=== PATIENT | male | born 1995 | race Caucasian/White ===

== ENCOUNTER 2018-05-03 16:14 | Inpatient (IN) | payer BC ==
--- NOTE | 2018-05-03 16:22 | EDPHY ---
H & P Time Seen by Provider: 05/03/18 16:20 HPI/ROS: CHIEF COMPLAINT: Schizoaffective HISTORY OF PRESENT ILLNESS: Patient is a 22-year-old man with history of schizoaffective bipolar disorder who came from [place] 3 months ago for a inpatient psychiatric program. 10 days ago he was transition to [facility]. Today he was evaluated by the MD there and placed on a hold. Patient states he does not know why he is here. According to the M1 he has been having racing thoughts and some paranoia and is gravely disabled. No suicidal or homicidal ideation. There is some documentation about him using marijuana and alcohol also over the last couple days and refusing his medications at some points. Severity: Moderate Modifying factors: None REVIEW OF SYSTEMS: Constitutional: denies: chills, fever, recent illness, recent injury EENTM: denies: blurred vision, double vision, nose congestion Respiratory: denies: cough, shortness of breath Cardiac: denies: chest pain, irregular heart rate, lightheadedness, palpitations Gastrointestinal/Abdominal: denies: abdominal pain, diarrhea, nausea, vomiting, blood streaked stools Genitourinary: denies: dysuria, frequency, hematuria, pain Musculoskeletal: denies: joint pain, muscle pain Skin: denies: lesions, rash, jaundice, bruising Neurological: denies: headache, numbness, paresthesia, tingling, dizziness, weakness Hematologic/Lymphatic: denies: blood clots, easy bleeding, easy bruising Immunologic/allergic: denies: HIV/AIDS, transplant 10 systems reviewed and negative except as noted EXAM: GENERAL: Well-appearing, well-nourished and in no acute distress. HEAD: Atraumatic, normocephalic. EYES: Pupils equal round and reactive to light, extraocular movements intact, sclera anicteric, conjunctiva are normal. ENT: TMs normal, nares patent, oropharynx clear without exudates. Moist mucous membranes. NECK: Normal range of motion, supple without lymphadenopathy or JVD. LUNGS: Breath sounds clear to auscultation bilaterally and equal. No wheezes rales or rhonchi. HEART: Regular rate and rhythm without murmurs, rubs or gallops. ABDOMEN: Soft, nontender, normoactive bowel sounds. No guarding, no rebound. No masses appreciated. BACK: No CVA tenderness, no spinal tenderness, step-offs or deformities EXTREMITIES: Normal range of motion, no pitting or edema. No clubbing or cyanosis. NEUROLOGICAL: Cranial nerves II through XII grossly intact. Normal speech, normal gait. 5/5 strength, normal movement in all extremities, normal sensation , normal reflexes PSYCH: Answers questions appropriately, calm, speech slightly pressured SKIN: Warm, dry, normal turgor, no visible rashes or lesions. Source: Patient, EMS Exam Limitations: Clinical condition - Medical/Surgical History Hx Asthma: No Hx Chronic Respiratory Disease: No Hx Diabetes: No Hx Cardiac Disease: No Hx Renal Disease: No Hx Cirrhosis: No Hx Alcoholism: No Hx HIV/AIDS: No Other PMH: Schizoaffective, bipolar - Family History Significant Family History: No pertinent family hx - Social History Alcohol Use: Occasionally Drug Use: Marijuana Constitutional: Initial Vital Signs Temperature (C) 37.3 C 05/03/18 16:22 Heart Rate 120 H 05/03/18 16:22 Respiratory Rate 16 05/03/18 16:22 Blood Pressure 152/94 H 05/03/18 16:22 O2 Sat (%) 95 05/03/18 16:22 O2 Delivery Mode Room Air Allergies/Adverse Reactions: No Known Allergies Allergy (Unverified 05/03/18 16:20) Home Medications: Medication Instructions Recorded Divalproex ER [Depakote ER 500 MG 1,250 mg PO DAILY@07 05/03/18 (*)] LORazepam [Ativan (*)] 0.5 mg PO BID PRN 05/03/18 Paliperidone Palmitate [Invega 156 mg IM Q28D 05/03/18 Sustenna (*)] Paliperidone [Invega] 1.5 mg PO DAILY 05/03/18 Propranolol HCl [Inderal 10mg (*)] 10 mg PO BID 05/03/18 QUEtiapine FUMARATE [Seroquel 50 50 mg PO HS 05/03/18 mg (*)] diphenhydrAMINE [Benadryl 50 MG 50 mg PO QID PRN 05/03/18 (*)] lamoTRIgine [LamICTAL] 75 mg PO DAILY 05/03/18 risperiDONE [RisperDAL] 1 mg PO DAILY 05/03/18 Medical Decision Making ED Course/Re-evaluation: 6:00 p.m. the patient is medically cleared. Awaiting psychiatric evaluation. 6:30 p.m. the patient has been evaluated by Mental Health. They will begin looking for placement. Patient placed at [address] [place] [address]. Transfer paperwork completed. Differential Diagnosis: Partial list of the Differential diagnosis considered include but were not limited to; psychosis, bipolar, decompensated nazia and although unlikely based on the history and physical exam, I also considered infection, head injury , electrolyte abnormality, hormone imbalance. - Data Points Laboratory Results: Laboratory Results 05/03/18 16:45 05/03/18 16:45 05/03/18 05/03/18 05/03/18 16:45 16:45 16:45 WBC RBC Hgb Hct MCV MCH MCHC RDW Plt Count MPV Neut % (Auto) Lymph % (Auto) Rosebud % (Auto) Eos % (Auto) Baso % (Auto) Nucleat RBC Rel Count Absolute Neuts (auto) Absolute Lymphs (auto) Absolute Monos (auto) Absolute Eos (auto) Absolute Basos (auto) Absolute Nucleated RBC Immature Gran % Immature Gran # Sodium 140 mEq/L mEq/L (135-145) Potassium 4.0 mEq/L mEq/L (3.5-5.2) Chloride 106 mEq/L mEq/L (97-110) Carbon Dioxide 23 mEq/l mEq/l (22-31) Anion Gap 11 mEq/L mEq/L (6-14) BUN 15 mg/dL mg/dL (7-23) Creatinine 0.9 mg/dL mg/dL (0.7-1.3) Estimated GFR > 60 Glucose 106 mg/dL H mg/dL (70-100) Calcium 9.6 mg/dL mg/dL (8.5-10.4) Urine Opiates Screen NEGATIVE (NEGATIVE) Urine Barbiturates NEGATIVE (NEGATIVE) Valproic Acid 106.7 mcg/mL mcg/mL (50.0-150.0) Ur Phencyclidine Scrn NEGATIVE (NEGATIVE) Ur Amphetamine Screen NEGATIVE (NEGATIVE) U Benzodiazepines Scrn NON-NEGATIVE H (NEGATIVE) Urine Cocaine Screen NEGATIVE (NEGATIVE) U Marijuana (THC) Screen NEGATIVE (NEGATIVE) Ethyl Alcohol < 10 mg/dL mg/dL (0-10) 05/03/18 16:45 WBC 8.23 10^3/uL 10^3/uL (3.80-9.50) RBC 5.19 10^6/uL 10^6/uL (4.40-6.38) Hgb 16.0 g/dL g/dL (13.7-17.5) Hct 47.8 % % (40.0-51.0) MCV 92.1 fL fL (81.5-99.8) MCH 30.8 pg pg (27.9-34.1) MCHC 33.5 g/dL g/dL (32.4-36.7) RDW 11.9 % % (11.5-15.2) Plt Count 264 10^3/uL 10^3/uL (150-400) MPV 10.2 fL fL (8.7-11.7) Neut % (Auto) 59.2 % % (39.3-74.2) Lymph % (Auto) 27.2 % % (15.0-45.0) Rosebud % (Auto) 10.8 % % (4.5-13.0) Eos % (Auto) 1.7 % % (0.6-7.6) Baso % (Auto) 0.7 % % (0.3-1.7) Nucleat RBC Rel Count 0.0 % % (0.0-0.2) Absolute Neuts (auto) 4.87 10^3/uL 10^3/uL (1.70-6.50) Absolute Lymphs (auto) 2.24 10^3/uL 10^3/uL (1.00-3.00) Absolute Monos (auto) 0.89 10^3/uL H 10^3/uL (0.30-0.80) Absolute Eos (auto) 0.14 10^3/uL 10^3/uL (0.03-0.40) Absolute Basos (auto) 0.06 10^3/uL 10^3/uL (0.02-0.10) Absolute Nucleated RBC 0.00 10^3/uL 10^3/uL (0-0.01) Immature Gran % 0.4 % % (0.0-1.1) Immature Gran # 0.03 10^3/uL 10^3/uL (0.00-0.10) Sodium Potassium Chloride Carbon Dioxide Anion Gap BUN Creatinine Estimated GFR Glucose Calcium Urine Opiates Screen Urine Barbiturates Valproic Acid Ur Phencyclidine Scrn Ur Amphetamine Screen U Benzodiazepines Scrn Urine Cocaine Screen U Marijuana (THC) Screen Ethyl Alcohol Departure - Departure Disposition: [facility] IP Clinical Impression: Schizoaffective disorder, bipolar type, Polysubstance abuse Condition: Fair
[2018-05-03 17:19] LABS: PLATELET COUNT 264 10^3/uL (150-400)
--- NOTE | 2018-05-03 19:38 | ASMTTLCEVL ---
[facility] Evaluation - Basic Information Evaluation Start Date and 05/03/2018 06:00 PM Time Hospital Status Answers: M1 Hold 72-hr M1 Hold Start Date 05/03/2018 03:30 PM and Time Patient statement Notes: I dont know why I am here. I guess it is because I was provocative and impulsive. Im hesitant to tell you. Narrative Notes: Per ED report: Pt is a 22 year old single male with a hx of schizoaffective disorder/bipolar type who came from [place] 3 months ago to participate in [facility]. Ten days ago pt. transitioned to [facility]. Today pt was evaluated by the Psychiatrist and placed on a M1 hold. Pt had stated he does not understand why he was sent to the ED. According to the M1 hold he has racing thoughts and some paranoia and is determined as gravely disabled. There was no report of SI or HI. [facility] consulted with Psychiatrist, Dr. Moore pt was sent from [facility] outpt program on a M1 hold as pt was exhibiting symptoms of nazia with psychosis which has increased over the last 3 days. [facility] is unable to manage pt.s behavior in a transitional community facility. Pt had expressed to [facility] Recovery staff that he was afraid for his safety and others. 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 Pt was also expressing to treatment team delusional thoughts such as thinking he was in heaven. Per report pt recently relapsed admitting to drinking vodka earlier today and recently relapsing on marijuana. Pt has a reported hx of heavy marijuana use. Diagnosis History Notes: Pt has a hx of schizoaffective disorder/bipolar type. Per [facility] report pt has a hx of starting to see a Psychiatrist in 2014, initially diagnosed with OCD. Pt was diagnosed initially with OCD since he was spending a lot of his time in his room practicing rituals. Recent inpt. Psychiatrist wondered whether these ritual behaviors were more paranoia/psychosis. Prior suicide attempts Notes: There was no hx provided of past suicide attempts. Prior hospitalizations Notes: Most recent hospitalization at [facility] for 3 weeks. Records indicate pt has been hospitalized on 2 other occasions related to psychosis with a hx of THC use. Treatment Responses Notes: Pt experiencing increased symptoms likely due to relapse resuming marijuana use. History of violence Notes: No hx of violence per father. Does have a hx of confrontational behavior in the past during his episodes. Therapist: [facility]. Psychiatrist: Dr. Sidra Pickard Medications (name, dosage, route, freq uency) Notes: Current meds per [facility] include: Invega Sustenna 156 mg IM Q4 weeks next does 05/17/18, Depakoe ER 1250 po Q day, Lamictal 50 mg q day 04/21-04/27/17, Lamical 75 po q day 04/28-05/04/17, Lamictal 100 mg po q day 05/05-05/11/18, Propranolol 10 mg po BID, Invega 1.5 po QD, Seroquel 50 mg po QHS, Ativan 0.5 po BID PN anxiety, may have as pass med, Benadryl 50 mg po QID PRN insomnia or akathisia Allergies/Reaction Notes: Pt denied any known allergies. Sleep Notes: Pt stated last week he was hardly sleeping last week only about 2-4 hours a night. Pt stated the past few days he has been sleeping better. Appetite Notes: Pt reported no concerns about his appetite and is unaware of any weight changes. Medical/Surgical history Notes: No chronic medical issues per hx. Substance use history (frequency, intensity, his tory, duration) Notes: Pt has a hx of marijuana abuse and per [facility] pt recently relapsed. There was no report of any other substance abuse or regular use of alcohol. Family composition Notes: Pt has an older brother moving to [place], [place] and an older sister in [place]. It was reported pt has a good relationship with his siblings. In past pt has denied any hx of problematic drinking. Need for family Answers: Yes participation in patient's care Family psychiatric/substance abuse history Notes: Brother has a hx of depression, history of suicide attempt per records. Developmental history Notes: Pt was born and raised in [facility]. Records show pt.s brother had a suicide attempt when pt was a teenager, which deeply affected him and led to obsessive thoughts, anxiety, and depression. Abuse concerns Answers: None Marital status/children Notes: Pt is single with no children. Living situation Notes: Pt is currently living at transitional housing through the [facility]. Sexual history/orientation Notes: Pt is not in a relationship. Peer support/family strengths Notes: Pts peer support is through the [facility]. Education level/history Notes: Pt per hx did very well in school, was in AP classes in high school and also a track star. He was well liked and had some girlfriends in school. Work history Notes: Pt recently started working at a local [employer] as a director of social media marketing. 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 Notes: No hx Legal Notes: Pt denied any legal problems or hx of arrests. Nondenominational/Spiritual Notes: Pt stated he likes [employer]. Leisure Notes: When asked about leisure interests pt stated he just likes chatting. Collateral Notes: Collateral inform was obtained from [place] Psychiatrist, Dr. Sidra Pickard. Patient's strengths Answers: Athletic (Please select at least TWO strengths): Intelligent Supportive Family TLC Evaluation - Mental Status Exam Appearance: Answers: Inappropriate Eye Contact: Answers: Appropriate for Culture Mood: Answers: Euthymic Affect: Answers: Anxious Apathetic Apprehensive Distracted Guarded Indifferent Behavior: Answers: Cooperative Fearful Guarded Impulsive Restless Suspicious Speech: Answers: Relevant Clear Delayed Thought Process: Answers: Oriented Alert Paranoid Racing Thoughts Insight: Answers: Poor Judgement: Answers: Poor Manic Signs/Symptoms Answers: Impulsivity Mood Swings Racing Thoughts Depression Answers: Diminished Interest Signs/Symptoms: Diminished Pleasure Flat Affect Psychomotor Agitation Anxiety Signs/Symptoms Answers: Generalized Anxiety Obsessive/Compulsive Thoughts/Behavior Delusions: Answers: Grandiose Paranoid Ideation Current Stage of Change Answers: Precontemplation Pt reported to have Answers: No suicidal/self-injuring ideation/behavior? Pt reported to be making Answers: No suicidal/self-injuring threats? Pt reported to have Answers: No aggression/assault ideation/behavior? Pt reported to be making Answers: No aggression/assault threats? Pt exhibits inability to Answers: Yes care for self/grave disability? Patient has a specific Answers: No plan? History of Answers: No suicidal/self-injuring ideation, behavior, or threats? History of Answers: No aggressive/assaultive ideation, behavior, or threats? History of serious Answers: No physical harm to self/others while in treatment setting? TLC Evaluation - Suicide/Homicide Risk Suicide Risk Factors: Answers: Agitation Alcohol/Heavy Drug Use Anxiety/Panic, Severe Bipolar Disorder Global Insomnia Impulsivity Psychotic Disorder Rapid Mood Shifts None Current Suicidal Answers: No Ideation? Current Suicidal Ideation Answers: No in the Past 48 Hours? Current Suicidal Ideation Answers: No in the Past Month? Suicide Internal Answers: Other Notes: Pt denies SI Protective Factors: None Suicide External Answers: Positive Therapeutic Protective Factors: Relationships Ranking of patient's Answers: Low suicidal risk: Ranking of patient's Answers: Low homicidal risk: TLC Evaluation - Wrap-up BDI Total Score: 2 BDI Question #2 Score: 0 BDI Question #9 Score: 0 BSS Total Score: 0 AXIS I Diagnosis (include DSM-V and ICD-10 codes), must also be entered in [employer], which is the source of truth. Notes: Schizoaffective Disorder, Bipolar Type 295.70 (F25.0) Bipolar I Disorder, with Psychotic Features 296.44 (F31.2) Hx of Obsessive-Compulsive Disorder 300.3 (F42) Cannabis Use Disorder, severe 304.30 (F12.20) Evaluation End Date and 05/03/2018 07:50 PM Time (HH:MM): Date Signed: 05/03/2018 07:37 PM Electronically Signed By:Angelique Micehle
--- NOTE | 2018-05-03 19:40 | ASMTTCLDSP ---
TLC Discharge Disposition Disposition: Answers: Admit Disposition Notes: Notes: In consultation with [facility] ED physician, Florentin Harding MD and on-call psychiatrist, Todd Dill MD, both concurred that pt appears to meet 27-65 criteria requiring psychiatric hospitalization as pt appears to be at risk of harm to self/others/gravely disabled due to a mental illness condition. Pt was read the Patient Rights and Responsibilities Statement on 05/03/18 at 18:20, original placed on chart, and was given photocopy of Rights. Pt signed the Patient Rights. Pt was given the 3 prohibited belongings list while in the ED. Discharge Concerns/Recommendations: Notes: [facility] Was patient given the Answers: Yes Inpatient Behavioral Health Prohibited Belongings List while in the ED? For inpatient Todd Dill admission, the following psychiatrist agreed to accept patient for [facility] ([facility] Type of Hold: Answers: M1/72-hour Hold Hold initiated by: Answers: Psychiatrist Date Signed: 05/03/2018 07:39 PM Electronically Signed By:Angelique Michele
--- NOTE | 2018-05-03 19:41 | ASMTLCPROG ---
Notes Note: Notes: Pt was read the Patient Rights and Responsibilities Statement on 05/03/18 at 18:20, original placed on chart, and was given photocopy of Rights. Pt signed the Patient Rights. Pt was given the 3N prohibited belongings list while in the ED.Pt has been accepted on [facility]. Date Signed: 05/03/2018 07:40 PM Electronically Signed By:Angelique Michele
[2018-05-03] MEDS ORDERED: OLANZapine DISINTEGR 10 MG TAB PO PRN (22:30)
[2018-05-03] MEDS ORDERED: ACETAMINOPHEN 325 MG TAB PO PRN (22:30)
[2018-05-03] MEDS ORDERED: MAG HYDROX/AL HYDROX/SIMETH 30 ML UDCUP PO PRN (22:30)
[2018-05-03] MEDS ORDERED: MAGNESIUM HYDROXIDE 30 ML UDCUP PO PRN (22:30)
[2018-05-03] MEDS ORDERED: NICOTINE POLACRILEX 2 MG GUM B PRN (22:30)
[2018-05-03] MEDS ORDERED: QUEtiapine FUMARATE 50 MG TAB PO SCH (22:45)
[2018-05-04] MEDS: LORazepam 0.5 MG TAB PO PRN (05:24)
[2018-05-04] MEDS: DIVALPROEX ER 250 MG TAB PO SCH (07:44)
[2018-05-04] MEDS: DIVALPROEX ER 500 MG TAB PO SCH (07:44)
[2018-05-04] MEDS: PROPRANOLOL HCL 10 MG TAB PO SCH ×2 (07:46→20:15)
[2018-05-04] MEDS: lamoTRIgine 25 MG TAB PO SCH (07:46)
--- NOTE | 2018-05-04 08:17 | ASMTBHMTP ---
Master Treatment Plan Master Treatment Plan Answers: Mood Instability with for: Psychosis Date: 05/04/2018 Diagnosis on Admission: Schizoaffective Disorder, Bipolar Type 295.70 (F25.0) Expected length of stay: 5-7 Reason for admission: Notes: Per ED report: Pt is a 22 year old single male with a hx of schizoaffective disorder/bipolar type who came from [place] 3 months ago to participate in [facility]. Ten days ago pt. transitioned to [facility]. Today pt was evaluated by the Psychiatrist and placed on a M1 hold. Pt had stated he does not understand why he was sent to the ED. According to the M1 hold he has racing thoughts and some paranoia and is determined as gravely disabled. There was no report of SI or HI. TLC consulted with Psychiatrist, Dr. Moore pt was sent from [facility] outpt program on a M1 hold as pt was exhibiting symptoms of nazia with psychosis which has increased over the last 3 days. [facility] is unable to manage pt.s behavior in a transitional community facility. Pt had expressed to [facility] staff that he was afraid for his safety and others. 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 Pt was also expressing to treatment team delusional thoughts such as thinking he was in heaven. Per report pt recently relapsed admitting to drinking vodka earlier today and recently relapsing on marijuana. Pt has a reported hx of heavy marijuana use. Patient's stated presenting problems: Notes: "I don't know". Patient's goals for treatment: Notes: "I would like to improve my intelect". Patient's strengths: Notes: "Nothing". Identify supports outside of hospital: Notes: "My parents, care coordinators at [facility] and a few cts there". Discharge criteria: Notes: Ct. will demonstrate more stable mood by discharge. Initial disposition plan/considerations: Notes: Participate in unit activities. Schedule follow up appointments with [facility] when ready for discharge. Master Treatment Plan Required Signatures Psychiatrist signature: Answers: Psychiatrist: RN on-shift signature: Answers: RN: Patient signature: Answers: Patient: Date Signed: 05/04/2018 08:16 AM Electronically Signed By:Mally Lopez
--- NOTE | 2018-05-04 08:22 | ASMTCMCOM ---
CM Note CM Note Notes: CC met with ct. to develop MTP. Ct. presented as very anxious and was visibly shaking. However, he denied being anxious. He reported that he doesn't know why he was admitted. CC discussed with ct. his drinking (per TLC) report but ct. denied that this is an issue for him. He signed a [facility] for [facility]. Date Signed: 05/04/2018 08:21 AM Electronically Signed By:Mally Lopez
[2018-05-04] MEDS ORDERED: PALIPERIDONE 3 MG TAB.ER PO ONE (09:21)
--- NOTE | 2018-05-04 10:00 | BAPA ---
[f rep st] ADMISSION PSYCHIATRIC ASSESSMENT DATE OF SERVICE: 05/04/2018 CHIEF COMPLAINT: "I can't really tell you why I'm here." HISTORY OF PRESENT ILLNESS: From the ED note dated 05/03/2018 patient with a history of schizoaffective disorder, bipolar type, recently came to [place] from [place] for inpatient psychiatric program at [facility]. The patient arrived to the emergency department on an M1 hold. The patient reported he had no idea why he was at the emergency room. According to the M1, the patient had been having racing thoughts, paranoia, and was placed on an M1 for grave disability. The patient expressed no suicidal or homicidal ideation. There was some documentation reported that patient had recently used marijuana and alcohol over the last few days prior to his presenting to the emergency room. From the [facility] evaluation dated 05/03/2018 patient was placed on a 72-hour M1 hold with start date and time of 05/03/2018 at 3:30 p.m. 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 I guess it is because I was provocative and impulsive. I'm hesitant to tell you." The patient was placed on an M1 hold by Dr. Gleason, the patient's outpatient psychiatrist at [facility]. The patient was exhibiting signs of nazia with psychosis that had been increasing over the course of 3 days. [facility] was unable to manage the patient's behavior in a transitional community facility. The patient expressed to [facility] that he was afraid for his safety and others. 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 The patient reported delusional thoughts such as thinking he was in heaven. The patient admitted to recently relapsing drinking vodka and using marijuana prior to his admission. The patient reported a history of heavy marijuana use. PAST PSYCHIATRIC HISTORY: The patient has a history of schizoaffective disorder , bipolar type. The patient started seeing a psychiatrist in 2014 and was initially diagnosed with OCD. Initially, OCD was diagnosed as patient would spend time in his room practicing rituals. However, at this point outpatient psychiatrist is concerned these ritual behaviors are more due to paranoia and psychosis. The patient has no history of past suicide attempts. The patient was most recently hospitalized at [facility] for 3 weeks. Records indicate patient has been hospitalized on 2 other occasions related to psychosis with history of THC use. The patient has most recently experienced exacerbation of symptoms and reported by his outpatient psychiatrist this is likely due to a relapse of marijuana use. OUTPATIENT MEDICATIONS: Per [facility], the patient's outpatient medications include the following. 1. Invega Sustenna 156 mg IM q.4 weeks, next dose 05/17/2018. 2. Depakote ER 1250 mg p.o. q. day. 3. Lamictal 75 mg p.o. q. day with increase to 100 mg p.o. q. day starting . 4. Propranolol 10 mg p.o. b.i.d. 5. Invega 1.5 mg p.o. q. day. 6. Seroquel 50 mg p.o. q.h.s. 7. Ativan 0.5 mg p.o. b.i.d. p.r.n. for anxiety. 8. Benadryl 50 mg p.o. q.i.d. for insomnia and akathisia prophylactics. The patient reports he has only been sleeping approximately 2-4 hours per night over the past several weeks. ALLERGIES: No known allergies. CURRENT MEDICATIONS: 1. Tylenol 650 mg p.o. q.4 hours p.r.n. 2. Depakote ER 1250 mg p.o. q. day at 0700. 3. Lamictal 75 mg p.o. q. day. 4. Ativan 0.5 to 1 mg p.o. q.6 hours p.r.n. 5. Maalox syrup 30 mL p.o. q.6 hours p.r.n. 6. Milk of magnesia 30 mL p.o. q. day p.r.n. 7. Melatonin 3-6 mg p.o. q.h.s. p.r.n. 8. Propranolol 10 mg p.o. b.i.d. 9. Seroquel 50 mg p.o. q.h.s. PAST MEDICAL HISTORY: The patient has no chronic medical issues per history. Will continue to gather patient's medical and surgical history throughout the course of the patient's hospitalization. SOCIAL HISTORY: The patient was born and raised in [place], [place]. The patient is single with no children. The patient is currently living in transitional housing through [facility]. The patient is currently not in a relationship. Reports his sexual orientation as heterosexual. Reports he is currently not sexually active. The patient reports he has been sexually active in the past. The patient's current main peer support is through [facility]. Per records, patient did very well in school, was in AP classes and was also reported as a track star. 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 The patient has no history of duty. The patient denies any legal problems or history of arrests. The patient reports sikh or spiritual practice as Episcopal. SUBSTANCE USE HISTORY: The patient has a history of marijuana abuse and has recently relapsed using marijuana prior to this admission. The patient also reports recently drinking vodka. The patient reports no other history of substance use. Will continue to gather substance use history throughout the course of the patient's hospitalization. SUBSTANCE ABUSE BRIEF INTERVENTION: Brief intervention regarding the risks of cannabis abuse is provided to patient with goal to reduce the risk of harm that could result from the continued use of cannabis, with the general aim to investigate the problem, raise awareness of problem, develop a solution with the patient, recommend a specific change or activity, and motivate the patient toward change. Assess substance abuse behavior and give supportive advice about harm reduction, recommend a reduction in hazardous/at-risk consumption patterns, and facilitate referrals for additional specialized treatment with point of care specialist. Intermediate goal is for the patient to quit cannabis use and attend outpatient substance abuse treatment. Intervention focus on intermediate goals to allow for more immediate success in the treatment process to keep the patient motivated. Review following with patient: Cannabis use risks: Short-term use: impaired short-term memory, impaired motor coordination, altered judgement, in high doses paranoia and psychosis. Long-term use addiction, diminished life satisfaction and achievement, symptoms of chronic bronchitis, and increased risk of chronic psychosis disorders if predisposition to such disorders. In withdrawal anger, aggression irritability, anxiety and nervousness, decreased appetite or weight loss, restlessness, and sleep difficulties with strange dreams. OUTPATIENT SUBSTANCE ABUSE TREATMENT: Patient referred to outpatient provider and treatment for continued treatment related to substance abuse. FAMILY PSYCHIATRIC HISTORY: The patient's brother has a history of depression and history of suicide attempt. The patient reports no other family psychiatric or substance abuse history. ADMISSION LABS AND STUDIES: 1. CBC within normal limits except absolute monocytes were elevated at 0.89. 2. BMP within normal limits except glucose is elevated at 106. 3. Hemoglobin A1c is pending. 4. Liver function within normal limits. 5. Lipid panel within normal limits except cholesterol was low at 129; LDL cholesterol calculated was low at 58, VLDL cholesterol was elevated at 26, non- HDL cholesterol was low at 84. 6. Toxicology screen was non-negative for benzodiazepines, negative for all other substances screened and negative for ethyl alcohol. 7. Valproic acid level 106.7. MENTAL STATUS EXAM: The patient is a well-nourished male looking stated chronological age. Attire is appropriate. Dress is casual. Grooming status is appropriate. Ambulation is independent. Gait is normal and coordinated. Posture is normal and relaxed. Eye contact is appropriate and adequate. Motor activity is appropriate with purposeful, organized, coordinated movements with no involuntary movements noted. Attitude is cooperative and friendly. The patient appears at times distractible and relates well to this interviewer. Language production is spontaneous. Rate at times is hesitant. Latency of response is prolonged. Tone is monotone, flat with no variation and amount is appropriate. Articulation is clear. The patient reports mood as "okay" with constricted, flat and incongruent affect. Patient's thought process is nonlinear and illogical with loose associations, tangential thought. Thought is disorganized. The patient does not report suicidal or homicidal thoughts, ideas, or plans. Patient denies auditory or visual hallucinations. Patient denies delusions. Patient does not appear to be attending to internal stimuli. The patient is oriented to person, place, time. The patient's attention and concentration are fair. The patient's insight and judgment are poor. There is no evidence of gross cognitive dysfunction at any point during the interview and no apparent dysfunction in recent or remote memory noted. The patient does not report undesirable side effects from current medications. DIAGNOSES: Based on the patient's history and current presentation, the patient 's diagnoses are: 1. Schizoaffective disorder, bipolar type. 2. Cannabis use disorder, severe. FORMULATION: The patient is a 22-year-old male, single, currently employed, living in [place], [place], is currently treated on an outpatient basis by [facility] and lives in [facility]. The patient presents to the hospital on an M1 hold placed by the patient's outpatient psychiatrist and is hospitalized involuntarily due to being gravely disabled due to an underlying mental illness. The patient requires continued inpatient care because of current mood instability. The patient presents with problems of mood instability that have steadily been increasing over the past week. Patient's life has been affected by these problems including the inability to appropriately care for himself and communicate his basic needs. The exacerbation of symptoms is preceded by patient's use of THC and alcohol. The patient has a past psychiatric history of schizoaffective disorder, bipolar type, and is currently being treated at [facility] on an outpatient basis. The patient is a high safety risk due to current mood instability. Protective factors while hospitalized include ongoing safety checks, active involvement in treatment, and support from our treatment team. The patient could benefit from inpatient hospitalization for safety, crisis stabilization, and medication evaluation. PLAN: 1. Psychotropic medications. After reviewing options risks and benefits with the patient, the patient agrees to continue current medications listed above. Will contact the patient's outpatient psychiatrist, Dr. Gleason at [facility], and discuss treatment options while patient is hospitalized in order to stabilize patient so we can discharge and return to treatment at [facility]. No other medication changes at this time as more time is needed to determine ongoing tolerability and efficacy. Plan is to continue to observe patient for response and side effects from medications, and ongoing monitoring and evaluation. 2. Review with patient informed consent and recommendations for psychotropic medication treatment listed below 3. Labs: no additional labs at this time 4. Therapy: continue milieu and group therapy 5. Further investigation including gathering information from patients relatives and review of past case records to inform treatment plan. 6. Safety/Wellness plan and follow-up outpatient appointments to be established prior to discharge. Next steps are for patient to meet with day care teacher to plan a safe discharge plan and establish outpatient services for ongoing treatment. 7. Confer with inpatient treatment team regarding treatment plan. 8. Address psychosocial stressors by meeting with point of care specialist to establish discharge plan including referrals for outpatient services. 9. Legal status: M1 10. Consider discharge next week if patient is in stable condition, safe, and has a safe discharge plan. 11. Substance abuse interventions: cannabis ESTIMATED LENGTH OF STAY: 3-5 days PSYCHOTROPIC MEDICATION TREATMENT INFORMED CONSENT and RECOMMENDATIONS: Review nature of condition, diagnosis, and prognosis. Review nature and purpose of psychotropic medication treatment. Review type of psychotropic medications being ordered. Review risk and benefits of psychotropic medication treatment. Review probable length of time will need to take medications. Review risk and benefits of not undergoing psychotropic medication treatment. Review alternative treatments to psychotropic medications. Review psychotropic medications contraindications, drug-drug interactions, side effects, and importance of reporting any side effects to a psychiatric provider or nurse during inpatient hospitalization, and upon discharge to patients psychiatric outpatient provider, primary care provider, or other health critical care educator. Review importance of asking a nurse, psychiatric provider, or primary care provider any questions or problems concerning the psychotropic medications. Verify patient understands the information that has been provided, and understands, accepts, and agrees to psychotropic medications. Review patients safety plan and importance of patient to communicate to staff while hospitalized if patient is ever a danger to self/others, or unable to care for self, and upon discharge, the importance for patient to contact [facility] or [facility], or go to the nearest emergency room, if patient is ever a danger to self/others, or unable to care for self. Recommend that upon discharge patient establish medication management treatment with a psychiatric provider, establishes routine therapy appointments, and follow-up with primary care provider. Verify patient understands and agrees to these recommendations. /[id number]/MODL MTDD
--- NOTE | 2018-05-04 13:19 | ASMTCMCOM ---
CM Note CM Note Notes: CC confirmed family phone numbers for client. MOC is Jade & FOC is Bradley ; if staff need to follow up with family.* Date Signed: 05/04/2018 01:19 PM Electronically Signed By:Farhad Mcknight
--- NOTE | 2018-05-04 19:11 | GCON ---
[f rep st] CONSULTATION INTERNAL MEDICINE CONSULTATION. DATE OF CONSULTATION: 05/04/2018 REASON FOR REFERRAL: Medical clearance for inpatient behavioral health stay. HISTORY OF PRESENT ILLNESS: This patient came to the emergency department on an M1 hold, sent by his treatment team from [facility]. He was apparently noncompliant with medications and behaving erratically at [facility]. He was evaluated by the mental health team and admitted for further psychiatric care. He is currently without any acute complaints. PAST MEDICAL HISTORY: He denies any history of medical illnesses or surgeries. MEDICATIONS: 1. Divalproex 1250 mg p.o. daily. 2. Lorazepam 0.5 mg b.i.d. p.r.n. 3. Paliperidone palmitate 156 mg IM q.28 days. 4. Paliperidone 1.5 mg p.o. daily. 5. Propranolol 10 mg p.o. b.i.d. 6. Quetiapine 50 mg q.h.s. 7. Diphenhydramine 50 mg p.o. q.i.d. p.r.n. 8. Lamotrigine 75 mg p.o. daily. 9. Risperidone 1 mg p.o. daily. SOCIAL HISTORY: He reports he is a smoker. He denies alcohol use. Per notes in the current chart, he has a history of heavy marijuana use, and he has been living at the [facility]. FAMILY HISTORY: Noncontributory. REVIEW OF SYSTEMS: He is not in pain. He denies cough or dyspnea. His weight has been stable. He denies nausea, vomiting, constipation, or diarrhea. Otherwise, a 10-point review of systems is negative. PHYSICAL EXAM: VITAL SIGNS: Blood pressure is 120/55. Heart rate is 88. Respiratory rate is 16. Oxygen saturation is 94% on room air. Temperature is 37.4 degrees centigrade. His weight is 86.2 kg, for a body mass index of 28.1. GENERAL: This is a well-nourished, well-developed man dressed in street clothes, sitting in a chair, cooperative, and in no acute distress. HEENT: Extraocular movements are intact. Pupils are equal, round, and reactive to light. Mucous membranes are moist. Dentition is in good condition. NECK: Supple. HEART: Regular rate and rhythm with no murmurs, rubs, or gallops. LUNGS: Clear to auscultation bilaterally. ABDOMEN: Benign. EXTREMITIES: There is no cyanosis, clubbing, or edema. NEUROLOGIC: He is alert. Orientation is not checked. Cranial nerves 2-12 are grossly intact. There is no focal weakness. Sensation is intact to light touch, and gait is within normal limits. LABORATORY STUDIES: From yesterday, CBC was within normal limits. There was a slight predominance of absolute monocytes, of no clinical significance. Serum chemistry revealed normal renal function and electrolytes. Hemoglobin A1c was normal at 5.3. Liver function tests were completely normal. Lipid panel revealed a low cholesterol at 129, a low LDL at 58, and a normal HDL at 45. Toxicology screen in the serum revealed a therapeutic level of valproic acid at 106.7. Ethyl alcohol was negative. Urine toxicology screen was non-negative for benzodiazepines but negative otherwise for substances of abuse. ASSESSMENT AND RECOMMENDATIONS: 1. Mental health issues, pending further evaluation and management per Psychiatry and the mental health team. 2. Tobacco dependence syndrome. Encouraged smoking cessation. I see no medical contraindications to this patient's continued stay on the inpatient behavioral health unit or to any psychiatric medications or procedures. Thank you very much for including me in the care of this patient. Please do not hesitate to contact me or the hospitalist service should there be need for further medical evaluation. /[id number]/MODL MTDD
[2018-05-05] MEDS: DIVALPROEX ER 250 MG TAB PO SCH (05:46)
[2018-05-05] MEDS: DIVALPROEX ER 500 MG TAB PO SCH (05:46)
--- NOTE | 2018-05-05 06:10 | SOAPPROG ---
SOAP Progress Note Assessment/Plan: Assessment: Schizoaffective Disorder, Bipolar Type complicated by cannabis abuse. Cannabis Use Disorder, Severe. No improvement noted (see subjective/objective note). Patient is not safe to discharge at this time as patient continues to exhibit signs of psychosis, and express psychosis symptoms. Patient requires continued inpatient care because of current psychosis, and requires inpatient level of care to stabilize to no longer be gravely disabled due to mental illness. Patient is unable to communicate his basic needs, unable to test reality, and continues to require prompting and direction from staff for ADLs. Patient exhibits inability to provide for himself, neglecting self-care, withdrawn from social interactions, currently shows inability to maintain any appropriate aspect of personal responsibility as an adult. Support system has inability to manage functional impairment at lower level of care. Patient could benefit from continued inpatient hospitalization for crisis stabilization, safety, and medication evaluation. Plan: 1. Psychotropic medications: After reviewing options, risks, and benefits patient agrees to continue current medications. No medication changes at this time as more time is needed to determine ongoing tolerability and efficacy. Plan is to continue to observe patient for response and side effects from medications, and ongoing monitoring and evaluation. 2. Review with patient informed consent and recommendations for psychotropic medication treatment listed below 3. Labs: no additional labs at this time 4. Therapy: continue milieu and group therapy 5. Further investigation including gathering information from patients relatives and review of past case records to inform treatment plan. 6. Safety/Wellness plan and follow-up outpatient appointments to be established prior to discharge. Next steps are for patient to meet with critical care rn to plan a safe discharge plan and establish outpatient services for ongoing treatment. 7. Confer with inpatient treatment team regarding treatment plan. 8. Psychosocial stressors addressed through case resolution specialist 9. Legal status: M1 10. Consider discharge next week if patient is in stable condition, safe, and has a safe discharge plan. 11. Substance abuse interventions: cannabis PSYCHOTROPIC MEDICATION TREATMENT INFORMED CONSENT and RECOMMENDATIONS: Review nature of condition, diagnosis, and prognosis. Review nature and purpose of psychotropic medication treatment. Review type of psychotropic medications being ordered. Review risk and benefits of psychotropic medication treatment. Review probable length of time patient will need to take medications. Review risk and benefits of not undergoing psychotropic medication treatment. Review alternative treatments to psychotropic medications. Review psychotropic medications contraindications, drug-drug interactions, side effects, and importance of reporting any side effects to a psychiatric provider or nurse during inpatient hospitalization, and upon discharge to patients psychiatric outpatient provider, primary care provider, or other health day care teacher. Review importance of asking a nurse, psychiatric provider, or primary care provider any questions or problems concerning the psychotropic medications. Verify patient understands the information that has been provided, and understands, accepts, and agrees to psychotropic medications. Review patients safety plan and importance of patient to report to staff while hospitalized if patient is ever a danger to self/others, or unable to care for self, and upon discharge, the importance for patient to contact [facility] or [facility], or go to the nearest emergency room, if patient is ever a danger to self/others, or unable to care for self. Recommend that upon discharge patient establish medication management treatment with a psychiatric provider, establishes routine therapy appointments, and follow-up with primary care provider. Verify patient understands and agrees to these recommendations. 05/05/18 06:12 Subjective: Following up with patient for evaluation of psychosis and safety. Patient reports, "Doing okay, didn't sleep that well last night." Patient expresses the following psychiatric symptoms none. Patient does not report undesirable side effects from the medications, and agrees to continue current medications. Patient describes getting 6 hours of sleep. Objective: Vital Signs Temp Pulse Resp BP Pulse Ox 37.4 C 88 16 120/55 L 94 05/04/18 06:00 05/04/18 06:00 05/03/18 22:27 05/04/18 06:00 05/03/18 22:27 NURSING REPORT: Consulted with nursing for update on patients progress in treatment. Nurses report patient is not engaged in treatment, is not attending groups, slept 6 hours, expresses the following psychiatric symptoms: anxiety, exhibits the following psychiatric symptoms: disorganized, thought blocking, withdrawn to room; is eating all meals, is agreeable to medications and taking as prescribed with no report of side effects, with no s/s of EPS/akathisia, and denies SI/HI, reports AH, denies VH, and denies delusions. [facility]: Patient's psychiatrist reports patient has a history of exacerbation of symptoms when using THC. Patient used THC prior to this admission. SUBSTANCE ABUSE BRIEF INTERVENTION: Brief intervention regarding the risks of cannabis abuse is provided to patient with goal to reduce the risk of harm that could result from the continued use of cannabis, with the general aim to investigate the problem, raise awareness of problem, develop a solution with the patient, recommend a specific change or activity, and motivate the patient toward change. Assess substance abuse behavior and give supportive advice about harm reduction, recommend a reduction in hazardous/at-risk consumption patterns, and facilitate referrals for additional specialized treatment with transitional care manager. Intermediate goal is for the patient to quit and attend outpatient substance abuse treatment. Intervention focus on intermediate goals to allow for more immediate success in the treatment process to keep the patient motivated. Review following with patient: Cannabis use risks: Short- term use: impaired short-term memory, impaired motor coordination, altered judgement, in high doses paranoia and psychosis. Long-term use addiction, diminished life satisfaction and achievement, symptoms of chronic bronchitis, and increased risk of chronic psychosis disorders if predisposition to such disorders. In withdrawal anger, aggression irritability, anxiety and nervousness, decreased appetite or weight loss, restlessness, and sleep difficulties with strange dreams. OUTPATIENT SUBSTANCE ABUSE TREATMENT: Patient referred to outpatient provider and treatment for continued treatment related to substance abuse. MSE: The patient is a well-nourished male looking stated chronological age. Attire is appropriate dress is casual. Grooming status is appropriate. Ambulation is independent. Gait is normal and coordinated. Posture is normal. Eye contact is inappropriate and staring. Motor activity is appropriate with purposeful, organized, coordinated movements; with no involuntary movements. Attitude is cooperative. Patient appears distractible and does not relate well to this interviewer. Language production is spontaneous. Rate is hesitant. Latency of response is prolonged. Articulation is clear. Patient reports mood as okay with flat, constricted, and inappropriate affect. Patients thought process is disorganized, non-linear and illogical, with loose associations, and thought blocking. Patient does not report suicidal/homicidal thoughts, ideas, or plans. Patient denies auditory, visual hallucinations. Patient reports delusions. Patient does not appear to be attending to internal stimuli. Patients attention and concentration are poor. Patient is oriented to person, place, and time. Patients insight is poor. Patients judgment is poor. - Time Spent With Patient Time Spent With Patient: 15 minutes, met with patient individually. - Pending Discharge Pending Discharge Within 24 Hours: No Pending Discharge Within 48 Hours: No ICD10 Worksheet Patient Problems: Problems Problem Status Onset Polysubstance abuse Acute Schizoaffective disorder, bipolar type Acute
[2018-05-05] MEDS: PALIPERIDONE 3 MG TAB.ER PO SCH (08:19)
[2018-05-05] MEDS: PROPRANOLOL HCL 10 MG TAB PO SCH ×2 (08:19→20:50)
[2018-05-05] MEDS: lamoTRIgine 25 MG TAB PO SCH (08:20)
--- NOTE | 2018-05-05 13:54 | ASMTCMCOM ---
CM Note CM Note Notes: Pt. reports feeling "bad", adding he screamed last night at midnight because of "fear" adding "scared of myself". Pt. stated he slept "bad". Pt. reports feeling "sad" due to "don't have any friends". Pt. stated he would like more food on his trays. Pt. stated he "don't like the texture" of his medications. Pt. stated he is attending groups, but does not find them helpful. Pt. denied SI, HI, and AVH. Pt. reports feeling paranoia, about "don't want to say", adding "I'm afriad". CC asked pt if he had any questions for the CC, pt stated "only inappropriate one". CC informed pt his questions should be appropriate. Pt. presents as alert, disorganized, guarded, suspicious and somewhat cooperative. Staff report pt. sleeping 5.5 hours and being medication compliant. Staff report pt. rolling around on the floor randomly. Pt. is setup to return to working with [facility]. Date Signed: 05/05/2018 01:53 PM Electronically Signed By:Pura Costa
[2018-05-06] MEDS: MELATONIN 3 MG TAB PO PRN ×2 (03:41→20:10)
[2018-05-06] MEDS: DIVALPROEX ER 500 MG TAB PO SCH ×2 (05:33→05:35)
[2018-05-06] MEDS: PROPRANOLOL HCL 10 MG TAB PO SCH ×2 (08:24→20:11)
[2018-05-06] MEDS: lamoTRIgine 25 MG TAB PO SCH (08:25)
[2018-05-06] MEDS: PALIPERIDONE 3 MG TAB.ER PO SCH (08:26)
[2018-05-06] MEDS: LORazepam 0.5 MG TAB PO PRN (16:04)
--- NOTE | 2018-05-06 19:00 | SOAPPROG ---
SOAP Progress Note Assessment/Plan: Assessment: Patient is a 22-year-old man with history of schizoaffective bipolar disorder who came from [place] 3 months ago to be treated at [facility]. He has been living at [facility], and was placed on M1 by Dr. Gleason on 05/03/18 d/t racing thoughts and some paranoia. Patient has also been noncompliant with meds and using THC. WEEKEND PLAN: 05/06/18 18:52 1. Patient told staff, "I might be a danger to myself" because of his tendency to use drugs and engage in "self-destructive" behaviors. 2. Patient admits that whenever he uses THC, he becomes "more psychotic." He denies most psychotic sxs when he hasn't been using drugs, especially THC, for awhile. 3. MD doesn't see the need for increasing mood stabilizers or antipsychotic medications given there is really little evidence that the sxs that resulted in hospitalization, "racing thoughts," "paranoia," and refusing medications, had anything at all to do with underlying mood or thought disorder. If that were the case, then sxs should not have resolved so quickly once patient was admitted to hospital. Patient did not have racing thoughts, pressured speech, increase in goal-directed activity, decreased need for sleep, grandiose delusions or elated/elevated mood. It's true that his VPA level is borderline therapeutic at 49, however, this MD believes dose should be titrated based on clinical presentation. In addition, patient has not endorsed CAH/AH/VH since admission. He also denies paranoid delusions and all types of delusions. He does not appear to be responding to IS/ES or have IOR, bizarre thoughts, or other sxs of psychosis. Therefore, it seems unnecessary to consider increasing his SGA. Patient was on 3 different SGAs prior to admission (Invega, Risperdal, Seroquel). It also seems unnecessary to increase his dose of AQUINO, Invega Sustenna. What is the evidence that such an increase is necessary? Patient is not psychotic now, which means that his presentation in Dr. Gleason's clinic prior to admission and his behavior in ED are most likely accounted for by his recent use of THC. The most effective intervention then to prevent recurrence of these sxs should be abstinence, not more psych meds. Increasing psych meds when they aren't warranted and when less risky alternatives are available only increases the chance of serious SE's and potentially harmful adverse events. If other interventions, like recovery and relapse preventions strategies are available (which they are through [facility]), why expose the patient to unnecessary risks from higher dose of medications? In this MD's opinion, such risks are not warranted. 4. Patient acknowledges that he does not have SI/HI, but concedes that the biggest "danger to myself" comes from his inability to stay sober and avoid engaging in "self-destructive" behavior such as using THC when he knows that it "makes me crazy." MD strongly encouraged patient to seek addiction/recovery treatment and talk to his providers at [facility] about how they can help him stay sober and prevent relapses in the future. He acknowledged this would be very beneficial for him. 5. Donato Clifton, HNP, has discussed the case with Dr. Gleason and decided to make med changes based on Dr. Gleason's assessment of the patient. Since this MD is seeing patient for the first time this weekend, he offered a second opinion for patient to discuss with OP providers when he returns to [facility]. He agreed with this plan. 6. MD decided to place patient on [facility] since he has gone back and forth about choosing to stay in hospital. He initially said he'd like to stay through weekend, then changed his mind and said he was "ready to leave." 7. [facility] Subjective: Patient sitting in common room watching TV and chatting with peers. He is smiling and presents with bright affect when MD speaks with him. He denies any SI/HI today, but admits he "might be a danger to myself" if he continues to use THC and other drugs that cause him to be "more psychotic." He admits this is "self-destructive" for him and wants to stop using drugs. Objective: Vital Signs Temp Pulse Resp BP Pulse Ox 36.4 C 74 14 122/59 H 93 05/06/18 06:00 05/06/18 06:00 05/06/18 06:00 05/06/18 06:00 05/06/18 06:00 MSE: Affect: Brighter, smiling Mood: "OK" TP: Linear, goal-directed TC: Denies any SI/HI, no paranoid delusions Perception: Denies AH/VH Insight/Judgment: Improving - Time Spent With Patient Time Spent With Patient: 15" - Pending Discharge Pending Discharge Within 24 Hours: No Pending Discharge Within 48 Hours: No ICD10 Worksheet Patient Problems: Problems Problem Status Onset Polysubstance abuse Acute Schizoaffective disorder, bipolar type Acute
[2018-05-07] MEDS: DIVALPROEX ER 500 MG TAB PO SCH ×2 (06:28)
[2018-05-07] MEDS: PROPRANOLOL HCL 10 MG TAB PO SCH ×2 (08:34→21:00)
[2018-05-07] MEDS: lamoTRIgine 25 MG TAB PO SCH (08:35)
[2018-05-07] MEDS: PALIPERIDONE 3 MG TAB.ER PO SCH (08:39)
--- NOTE | 2018-05-07 16:34 | ASMTBHDC ---
Notes Note: Notes: The client requested to work on his discharge plan. He reported that he attempted to contact [facility] to learn whether he can return to transitional housing. The patient endorsed feeling anxious and restless. The patient was observed repeatedly and abruptly turning his head to look behind him. He explained that he was looking at another staff member; reason unknown. He rated himself 3/10 on the suicide scale. He stated, he can tell when he is a danger to himself because he is thinking about self destructive behaviors. The patient elaborated that he wanted to use thc; later clarifying that he doesn't believe he has a substance abuse issue. He reported that he is sensitive to substances and then he uses thc in minimal amounts ("one hit four times in the past year"). The patient lacks insight into the impact of substances on mental health. The patient stated, "I feel invincible" when using thc and feels "scared" when sober. The patient denied HI and A/VH. The patient is observed blushing, smiling, and making intermittent eye contact. Date Signed: 05/07/2018 04:33 PM Electronically Signed By:Tamy Tillman
--- NOTE | 2018-05-07 19:11 | SOAPPROG ---
SOAP Progress Note Assessment/Plan: Assessment: Patient is a 22-year-old man with history of schizoaffective bipolar disorder who came from [place] 3 months ago to be treated at [facility]. He has been living at [facility], and was placed on M1 by Dr. Gleason on 05/03/18 d/t racing thoughts and some paranoia. Patient has also been noncompliant with meds and using THC. WEEKEND PLAN: 05/06/18 18:52 1. Patient told staff, "I might be a danger to myself" because of his tendency to use drugs and engage in "self-destructive" behaviors. 2. Patient admits that whenever he uses THC, he becomes "more psychotic." He denies most psychotic sxs when he hasn't been using drugs, especially THC, for awhile. 3. MD doesn't see the need for increasing mood stabilizers or antipsychotic medications given there is really little evidence that the sxs that resulted in hospitalization, "racing thoughts," "paranoia," and refusing medications, had anything at all to do with underlying mood or thought disorder. If that were the case, then sxs should not have resolved so quickly once patient was admitted to hospital. Patient did not have racing thoughts, pressured speech, increase in goal-directed activity, decreased need for sleep, grandiose delusions or elated/elevated mood. It's true that his VPA level is borderline therapeutic at 49, however, this MD believes dose should be titrated based on clinical presentation. In addition, patient has not endorsed CAH/AH/VH since admission. He also denies paranoid delusions and all types of delusions. He does not appear to be responding to IS/ES or have IOR, bizarre thoughts, or other sxs of psychosis. Therefore, it seems unnecessary to consider increasing his SGA. Patient was on 3 different SGAs prior to admission (Invega, Risperdal, Seroquel). It also seems unnecessary to increase his dose of AQUINO, Invega Sustenna. What is the evidence that such an increase is necessary? Patient is not psychotic now, which means that his presentation in Dr. Gleason's clinic prior to admission and his behavior in ED are most likely accounted for by his recent use of THC. The most effective intervention then to prevent recurrence of these sxs should be abstinence, not more psych meds. Increasing psych meds when they aren't warranted and when less risky alternatives are available only increases the chance of serious SE's and potentially harmful adverse events. If other interventions, like recovery and relapse preventions strategies are available (which they are through [facility]), why expose the patient to unnecessary risks from higher dose of medications? In this MD's opinion, such risks are not warranted. 4. Patient acknowledges that he does not have SI/HI, but concedes that the biggest "danger to myself" comes from his inability to stay sober and avoid engaging in "self-destructive" behavior such as using THC when he knows that it "makes me crazy." MD strongly encouraged patient to seek addiction/recovery treatment and talk to his providers at [facility] about how they can help him stay sober and prevent relapses in the future. He acknowledged this would be very beneficial for him. 5. Donato Clifton, HNP, has discussed the case with Dr. Gleason and decided to make med changes based on Dr. Gleason's assessment of the patient. Since this MD is seeing patient for the first time this weekend, he offered a second opinion for patient to discuss with OP providers when he returns to [facility]. He agreed with this plan. 6. MD decided to place patient on [facility] since he has gone back and forth about choosing to stay in hospital. He initially said he'd like to stay through weekend, then changed his mind and said he was "ready to leave." 7. ST 05/07/18 19:06 1. Patient was relaxed, pleasant, smiling and chatting with staff and MD. This AM he felt "stressed" after altercation with peer. 2. Patient says he feels "good" and is ready for discharge. 3. Patient plans to return to his own apartment with [facility] roommates. Patient says he was staying at [facility] for 13 days, but has since moved into his own place with roommates. 4. CC will need to schedule f/u with [facility] 5. ST Subjective: Patient is pacing in halls, becomes very talkative when MD stops to chat with him. He has been attending groups and watching a lot of TV. He is pleasant, calm and stable. He denies any AH/VH, paranoid, IOR or bizarre thoughts. He denies feeling sad, depressed, anxious, helpless, hopeless or worthless. He does not have racing thoughts, pressured speech, elated/elevated mood, grandiose delusions, or changes in activity or sleep. He denies SI/HI. Objective: Vital Signs Temp Pulse Resp BP Pulse Ox 36.8 C 63 14 112/63 94 05/07/18 06:00 05/07/18 06:00 05/07/18 06:00 05/07/18 06:00 05/07/18 06:00 MSE: Affect: Bright, cheerful Mood: "Good" TP: Goal-directed TC: Denies SI/HI , denies paranoid delusions Perception: Denies AH/VH Insight/Judgment: Poor - Time Spent With Patient Time Spent With Patient: 15" - Pending Discharge Pending Discharge Within 24 Hours: No Pending Discharge Within 48 Hours: No ICD10 Worksheet Patient Problems: Problems Problem Status Onset Polysubstance abuse Acute Schizoaffective disorder, bipolar type Acute
[2018-05-07] MEDS: MELATONIN 3 MG TAB PO PRN (21:00)
[2018-05-07] MEDS: LORazepam 0.5 MG TAB PO PRN (21:00)
[2018-05-08] MEDS: DIVALPROEX ER 500 MG TAB PO SCH ×2 (06:33)
--- NOTE | 2018-05-08 08:50 | SOAPPROG ---
SOAP Progress Note Assessment/Plan: Assessment: Schizoaffective Disorder, Bipolar Type complicated by cannabis abuse. Cannabis Use Disorder, Severe. Improvement noted (see subjective/objective note). Patient could benefit from continued inpatient hospitalization for crisis stabilization, safety, and medication evaluation. Consider discharge tomorrow if patient is stable and has a safe discharge plan. Plan: 1. Psychotropic medications: After reviewing options, risks, and benefits patient agrees to continue current medications. No medication changes at this time as more time is needed to determine ongoing tolerability and efficacy. Plan is to continue to observe patient for response and side effects from medications, and ongoing monitoring and evaluation. 2. Review with patient informed consent and recommendations for psychotropic medication treatment listed below 3. Labs: no additional labs at this time 4. Therapy: continue milieu and group therapy 5. Further investigation including gathering information from patients relatives and review of past case records to inform treatment plan. 6. Safety/Wellness plan and follow-up outpatient appointments to be established prior to discharge. Next steps are for patient to meet with childcare aide to plan a safe discharge plan and establish outpatient services for ongoing treatment. 7. Confer with inpatient treatment team regarding treatment plan. 8. Psychosocial stressors addressed through correctional casework specialist 9. Legal status: [facility] 10. Consider discharge next week if patient is in stable condition, safe, and has a safe discharge plan. 11. Substance abuse interventions: cannabis PSYCHOTROPIC MEDICATION TREATMENT INFORMED CONSENT and RECOMMENDATIONS: Review nature of condition, diagnosis, and prognosis. Review nature and purpose of psychotropic medication treatment. Review type of psychotropic medications being ordered. Review risk and benefits of psychotropic medication treatment. Review probable length of time patient will need to take medications. Review risk and benefits of not undergoing psychotropic medication treatment. Review alternative treatments to psychotropic medications. Review psychotropic medications contraindications, drug-drug interactions, side effects, and importance of reporting any side effects to a psychiatric provider or nurse during inpatient hospitalization, and upon discharge to patients psychiatric outpatient provider, primary care provider, or other health urgent care nurse practitioner. Review importance of asking a nurse, psychiatric provider, or primary care provider any questions or problems concerning the psychotropic medications. Verify patient understands the information that has been provided, and understands, accepts, and agrees to psychotropic medications. Review patients safety plan and importance of patient to report to staff while hospitalized if patient is ever a danger to self/others, or unable to care for self, and upon discharge, the importance for patient to contact [facility] or 911, or go to the nearest emergency room, if patient is ever a danger to self/others, or unable to care for self. Recommend that upon discharge patient establish medication management treatment with a psychiatric provider, establishes routine therapy appointments, and follow-up with primary care provider. Verify patient understands and agrees to these recommendations. 05/08/18 08:50 Subjective: Following up with patient for evaluation of psychosis and safety. Patient reports, "Doing fine, weekend went well, no issues." Patient expresses the following psychiatric symptoms none. Patient does not report undesirable side effects from the medications, and agrees to continue current medications. Patient describes getting 8 hours of sleep. Patient reports he plans to call [facility] this morning to establish outpatient services, and plans to return to his apartment in [place] and to treatment at [facility]. Objective: Vital Signs Temp Pulse Resp BP Pulse Ox 36.8 C 60 16 119/56 L 97 05/08/18 06:00 05/08/18 06:00 05/08/18 06:00 05/08/18 06:00 05/08/18 06:00 NURSING REPORT: Consulted with nursing for update on patients progress in treatment. Nurses report patient is not engaged in treatment, is not attending groups, slept 8 hours, expresses the following psychiatric symptoms: anxiety, exhibits the following psychiatric symptoms: withdrawn to room; is eating all meals, is agreeable to medications and taking as prescribed with no report of side effects, with no s/s of EPS/akathisia, and denies SI/HI, denies AH, denies VH, and denies delusions. MD REPORT FROM WEEKEND: Seems stable. SUBSTANCE ABUSE BRIEF INTERVENTION: Brief intervention regarding the risks of cannabis abuse is provided to patient with goal to reduce the risk of harm that could result from the continued use of cannabis, with the general aim to investigate the problem, raise awareness of problem, develop a solution with the patient, recommend a specific change or activity, and motivate the patient toward change. Assess substance abuse behavior and give supportive advice about harm reduction, recommend a reduction in hazardous/at-risk consumption patterns, and facilitate referrals for additional specialized treatment with behavioral health care coordinator. Intermediate goal is for the patient to quit and attend outpatient substance abuse treatment. Intervention focus on intermediate goals to allow for more immediate success in the treatment process to keep the patient motivated. Review following with patient: Cannabis use risks: Short- term use: impaired short-term memory, impaired motor coordination, altered judgement, in high doses paranoia and psychosis. Long-term use addiction, diminished life satisfaction and achievement, symptoms of chronic bronchitis, and increased risk of chronic psychosis disorders if predisposition to such disorders. In withdrawal anger, aggression irritability, anxiety and nervousness, decreased appetite or weight loss, restlessness, and sleep difficulties with strange dreams. OUTPATIENT SUBSTANCE ABUSE TREATMENT: Patient referred to outpatient provider and treatment for continued treatment related to substance abuse. MSE: The patient is a well-nourished male looking stated chronological age. Attire is appropriate dress is casual. Grooming status is inappropriate and disheveled. Ambulation is independent. Gait is normal and coordinated. Posture is normal. Eye contact is appropriate. Motor activity is appropriate with purposeful, organized, coordinated movements; with no involuntary movements. Attitude is cooperative. Patient appears attentive and relates well to this interviewer. Language production is spontaneous. R/R/V are normal. Articulation is clear. Patient reports mood as okay with congruent affect. Patients thought process is linear and fairly logical; no thought blocking noted. Patient does not report suicidal/homicidal thoughts, ideas, or plans. Patient denies auditory, visual hallucinations. Patient denies delusions. Patient does not appear to be attending to internal stimuli. Patients attention and concentration are poor. Patient is oriented to person, place, and time. Patients insight is poor. Patients judgment is poor. - Time Spent With Patient Time Spent With Patient: 15 minutes, met with patient individually. - Pending Discharge Pending Discharge Within 24 Hours: No Pending Discharge Within 48 Hours: No ICD10 Worksheet Patient Problems: Problems Problem Status Onset Polysubstance abuse Acute Schizoaffective disorder, bipolar type Acute
[2018-05-08] MEDS: PALIPERIDONE 3 MG TAB.ER PO SCH (09:32)
[2018-05-08] MEDS: PROPRANOLOL HCL 10 MG TAB PO SCH ×2 (09:32→22:37)
[2018-05-08] MEDS: lamoTRIgine 25 MG TAB PO SCH (09:32)
[2018-05-09] MEDS: DIVALPROEX ER 500 MG TAB PO SCH ×2 (06:01→06:02)
[2018-05-09 07:00] VITALS: BP 129/57
[2018-05-09] MEDS: PROPRANOLOL HCL 10 MG TAB PO SCH (08:28)
[2018-05-09] MEDS: lamoTRIgine 25 MG TAB PO SCH (08:28)
[2018-05-09] MEDS: PALIPERIDONE 3 MG TAB.ER PO SCH (08:28)
--- NOTE | 2018-05-09 10:00 | BDS ---
[f rep st] BEHAVIORAL HEALTH DISCHARGE SUMMARY REASON FOR ADMISSION: From the ED note dated 05/03/2018, patient with a history of schizoaffective bipolar disorder, was placed on an M1 hold by his outpatient psychiatrist due to having racing thoughts and paranoia and was deemed gravely disabled. Patient reported no suicidal or homicidal ideation. Patient was admitted involuntarily and on an M1 hold due to being gravely disabled. Patient was admitted for safety, crisis stabilization, and medication management. ADMITTING DIAGNOSES: 1. Schizoaffective disorder, bipolar type. 2. Cannabis use disorder, severe. ADMISSION PHYSICAL EXAM: Patient was seen for history and physical consultation for medical clearance for inpatient psychiatric hospitalization on 05/04/2018. Patient was medically cleared for inpatient psychiatric hospitalization and treatment. For further details, please refer to consultation document dated 05/04/2018. ADMISSION LABS: 1. CBC within normal limits except absolute monocytes were elevated at 0.89. 2. BMP within normal limits except glucose was elevated at 106. 3. Hemoglobin A1c within normal limits at 5.3. 4. Liver function within normal limits. 5. Lipid panel within normal limits except cholesterol was low at 129, LDL cholesterol calculated was low at 58, VLDL cholesterol was elevated at 26, and non-HDL cholesterol was low at 84. 6. Toxicology screen was non-negative for benzodiazepines, negative for other substances screened, and negative for ethyl alcohol. 7. Valproic acid on 05/05/2018 was 49.0 at dose of Depakote ER 1250 mg p.o. daily. MAJOR PROCEDURES OR TESTS: None. HOSPITAL COURSE: The most prominent symptoms and behaviors while the patient was here were paranoia, tangential thought with loose associations. At time of admission, patient also was not sleeping well, only sleeping 4-6 hours per night. Treatment modalities utilized were milieu and group therapy. Depakote ER 1250 mg p.o. daily was continued and titrated to 1500 mg p.o. daily. Was tolerated with no report of side effects and with good response. Invega 3 mg p.o. daily was started to target mood and psychosis symptoms, was tolerated with no report of side effects and with good response. Lamictal 75 mg p.o. daily was continued to target mood symptoms with no report of side effects and with good response. Propranolol 10 mg p.o. twice daily was continued with no report of side effects and with good response. Patient has improved considerably with no signs of psychiatric symptoms and no psychiatric symptoms expressed. Patient reports he has improved since admission, states to be in stable condition, feels safe to discharge, and he contracts for safety. Patients response to treatment was good. There were no adverse or unexpected results of treatment. The patient was safe throughout stay, active in treatment , engaged in groups, and was appropriate with staff. Patient met with treatment team prior to discharge to assess readiness to discharge and review discharge plan. The treatment team consensus is the patient in stable condition , has a safe discharge plan, and is ready to discharge today. CONDITION AT DISCHARGE: Patient is in stable condition and is no longer a danger to self or others, and is not gravely disabled due to mental illness. Patient is no longer in need of inpatient level of care, and can be safely and effectively treated within the community. The patients level of risk at time of discharge is low. MSE: The patient is casually dressed and with good hygiene , and looks stated age. Patient is sitting, posture is upright, and position is relaxed. Patient appears awake, alert, and responds appropriately and reasonably during interview. Patient is engaged, relates well to interviewer, and emotional facial expression is appropriate to situation and changes appropriately with topic. Patient is cooperative, makes comfortable eye contact , and movements are voluntary, deliberate, coordinated, and smooth and even with no inappropriate movements. Patient makes laryngeal sounds effortlessly and shares conversation appropriately; pace of conversation is appropriate, and stream of talking is fluent; articulation is clear and understandable; word choice is effortless and appropriate for education level; completes sentences, occasionally pausing to think; rate and volume are appropriate for interview and setting. Patient reports mood as euthymic. Patients affect is stable with full variable range, congruent with mood, and appropriate to speech and circumstances. Patient has linear and logical thinking, with no loose associations, tangential thought, thought blocking, concrete thinking, or any other signs of formal thought disorder. Patient denies suicidal and homicidal ideation, and denies hallucinations and delusions. Patient appears to be a reliable historian with sound judgement and good insight into current condition. Patient has no apparent dysfunction in recent or remote memory noted , and no evidence of gross cognitive dysfunction noted at any point during the interview. DISCHARGE DIAGNOSES: 1. Schizoaffective disorder, bipolar type. 2. Cannabis use disorder, severe. CURRENT MEDICATIONS: After reviewing options, risks and benefits with the patient, patient agrees to continue: 1. Invega Sustenna 156 mg IM every 28 days with next maintenance dose due on . Maintenance dose to be determined by patient's outpatient psychiatrist at [facility]. 2. Depakote ER 1500 mg p.o. daily at 0700. 3. Lamictal 75 mg p.o. daily. 4. Propranolol 10 mg p.o. twice daily. 5. Invega 3 mg p.o. daily. DISPOSITION: Patient left hospital independently and voluntarily and plans to follow up at [facility] and continue his treatment with his outpatient psychiatrist, Dr. Gleason at [facility]. FOLLOWUP: employee wellness/fitness coordinator reports the appropriate outpatient follow-up services have been established and outpatient appointments have been scheduled. The patient received written instructions with times and dates of outpatient follow-up appointments. The following follow-up recommendations were provided to the patient at discharge: Continue psychotropic medications as prescribed and attend appointments as scheduled. Report any side effects to a psychiatric outpatient provider, a primary care provider, or other health child day care center worker. Address any questions or problems concerning the psychotropic medications with a psychiatric outpatient provider, a primary care provider, or other health child day care center worker. Contact [facility] or [facility], or go to the nearest emergency room, if you are ever a danger to yourself/others, or unable to care for yourself. As soon as possible, establish a routine medication management treatment with a psychiatric provider, establish routine therapy appointments, and follow-up with a primary care provider. LEGAL COURSE: Patient was admitted on an M1 hold for involuntary inpatient psychiatric hospitalization. Patient was discharged today independently and voluntarily. ATTITUDE AT TIME OF DISCHARGE: The patients attitude was positive at time of discharge, and patient reports looking forward to discharging today. The patient reports he feels safe to discharge, is no longer a danger to himself or others, is in stable condition, and contracts for safety. Patient states he will continue medications as prescribed, and establish medication management treatment with an outpatient provider after discharge. Patient reports he understands the information that has been provided to him, and he understands, accepts, and agrees to psychotropic medications. Patient describes internal protective factors as the coping skills he has learned while hospitalized here, and he plans to continue to practice these coping skills after discharge. LABS AND RADIOLOGY STUDIES: There were no pending labs or studies at time of discharge. ADVANCE DIRECTIVES: There were no advance directives on file, and patient was a full code during this hospitalization. The following psychotropic medication treatment informed consent and recommendations were provided to the patient at time of discharge. Patient reports he understands, accepts, and agrees to the information that has been provided. PSYCHOTROPIC MEDICATION TREATMENT INFORMED CONSENT and RECOMMENDATIONS: Review nature of condition, diagnosis, and prognosis. Review nature and purpose of psychotropic medication treatment. Review type of psychotropic medications being prescribed. Review risk and benefits of psychotropic medication treatment. Review probable length of time will need to take medications. Review risk and benefits of not undergoing psychotropic medication treatment. Review alternative treatments to psychotropic medications. Review psychotropic medications contraindications, side effects, and importance of reporting any side effects to a psychiatric provider, primary care provider, or other health child day care center worker. Review importance of asking a psychiatric provider or primary care provider any questions or problems concerning the psychotropic medications. Review safety plan and the importance to contact [facility] or [facility] , or go to the nearest emergency room, if ever a danger to yourself/others, or unable to care for yourself. Recommend upon discharge to establish routine medication management treatment with a psychiatric provider, establish routine therapy appointments, and follow-up with a primary care provider. Verify patient understands, accepts, and agrees to the information that has been provided. /[id number]/[id number]
== END 2018-05-09 10:03 | DRG 885 ==
LOC: EDUNIT# → BBEH 22:20
PROVIDERS: ADMIT Psychiatry & Neurology Psychiatry; ATTEND Psychiatry & Neurology Psychiatry
DX: F20.0 Paranoid schizophrenia (principal); F12.20 Cannabis dependence, uncomplicated; F17.210 Nicotine dependence, cigarettes, uncomplicated
CPT/HCPCS: 80305; G0480